=== PATIENT | male | born 1955 | race Two or more races ===

== ENCOUNTER 2019-02-01 01:43 | Emergency (ER) | payer MEDICARE ==
[~2019-02-01] VITALS: Ht 182.9 cm; Wt 77.1 kg
[2019-02-01 01:46] VITALS: BP 160/90
== END 2019-02-01 06:47 | disposition left against medical advice (07) ==
LOC: EDBD 01:43 → ER 01:54
DX: M25.532 Pain in left wrist (principal); R51 Headache; Z53.21 Procedure and treatment not carried out due to patient leaving prior to being seen by health care provider; V49.9XXA Car occupant (driver) (passenger) injured in unspecified traffic accident, initial encounter; Y93.89 Activity, other specified; Y92.488 Other paved roadways as the place of occurrence of the external cause; Y99.8 Other external cause status
CPT/HCPCS: 70450; 72125; 73110; 82962